=== PATIENT | female | born 1980 | race Caucasian/White ===

== ENCOUNTER 2020-04-20 16:35 | Emergency (ER) | payer OTHER ==
[2020-04-20 16:45] VITALS: BP 128/78; PULSE 70; RESP 16; TEMP 97.5
[2020-04-20] MEDS ORDERED: HYDROmorphone 0.5 MG/0.5 ML SYRINGE IVP STA ×2 (17:04→19:16)
[2020-04-20 17:30] LABS: Basophils # (A) 0.1 k/uL (0-0.2); Basophils % (A) 1 %; Eosinophils # (A) 0.2 k/uL (0-0.7); Eosinophils % (A) 1 %; HCT 43.9 % (34.0-46.0); HGB 13.9 gm/dL (11.4-16.0); Lymphocytes # (A) 2.7 k/uL (1.0-4.8); Lymphocytes % (A) 21 %; MCH 29.9 pg (25.0-35.0); MCHC 31.8 g/dL (31.0-37.0); Mean Platelet Volume 9.7; Monocytes # (A) 0.5 k/uL (0-1.0); Monocytes % (A) 4 %; Neutrophils # (A) 9.1 k/uL (1.3-7.7); Neutrophils % (A) 71 %; Platelet Count 210 k/uL (150-450); RBC 4.66 m/uL (3.80-5.40); RDW 12.1 % (11.5-15.5); WBC 12.8 k/uL (3.8-10.6)
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
[2020-04-20 17:44] LABS: ALT 20 U/L (4-34); AST 53 U/L (14-36); African American GFR (CKD) >90 (>60 ml/min/1.73 sqM); Albumin 4.2 g/dL (3.5-5.0); Alcohol <10 mg/dL; Alkaline Phosphatase 55 U/L (38-126); Amylase 58 U/L (30-110); Anion Gap 7 mmol/L; Blood Urea Nitrogen 11 mg/dL (7-17); Carbon Dioxide 25 mmol/L (22-30); Chloride 102 mmol/L (98-107); Glucose 121 mg/dL (74-99); Non-African American GFR(CKD) >90 (>60 ml/min/1.73 sqM); Sodium 134 mmol/L (137-145); Total Bilirubin 0.5 mg/dL (0.2-1.3); Total Protein 6.9 g/dL (6.3-8.2)
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
[2020-04-20 17:52] LABS: Potassium 4.1 mmol/L (3.5-5.1)
[2020-04-20 17:54] LABS: INR 0.9 (<1.2); Prothrombin Time 9.4 sec (9.0-12.0)
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
[2020-04-20 18:00] LABS: Partial Thromboplastin Time 20.3 sec (22.0-30.0)
[2020-04-20] MEDS ORDERED: HYDROmorphone 1 MG/ML 1 ML SYRINGE IVP STA (18:38)
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
[2020-04-20] MEDS ORDERED: HYDROcodone/APAP 7.5-325MG 1 EACH TAB PO ONE (19:17)
== END 2020-04-20 19:35 | disposition home or self-care (01) ==
LOC: EC 16:35
DX: S42.391A Other fracture of shaft of right humerus, initial encounter for closed fracture (principal); F17.200 Nicotine dependence, unspecified, uncomplicated; V86.55XA Driver of 3- or 4- wheeled all-terrain vehicle (ATV) injured in nontraffic accident, initial encounter; Y93.89 Activity, other specified; Y92.89 Other specified places as the place of occurrence of the external cause
CPT/HCPCS: 99285; 96374; 96376 ×2; 29105; 36415; 93005; 86900; 86901; 80053; 82150; 83605; 83690; 84484; 85025; 85610; 85730; 86850; 72170; 73030; 73060; 73070; 71045; 72125; 70450; L0120; G0480; J1170 ×2; 80320